=== PATIENT | male | born 1985 | race Caucasian/White ===

== ENCOUNTER 2019-10-02 07:38 | Outpatient (CLI) | payer OTHER, SELFPAY ==
[2019-10-02 08:41] LABS: Alanine Aminotransferase 38 U/L (4-50); Albumin Level 4.5 g/dL (3.5-5.1); Alkaline Phosphatase 72 U/L (38-126); Aspartate Amino Transferase 25 U/L (17-59); Bilirubin,Total 0.3 mg/dL (0.2-1.3); Blood Urea Nitrogen 22 mg/dL (9-20); Calcium 9.5 mg/dL (8.4-10.2); Carbon Dioxide 25 mmol/L (22-30); Chloride 101 mmol/L (98-107); Estimated Glomerular Filt Rate > 60; Glucose 100 mg/dL (75-110); Potassium 4.3 mmol/L (3.4-5.0); Sodium 137 mmol/L (137-145)
[2019-10-02 08:42] LABS: Add Urine Microscopic? YES; Appearance Urine Clear (Clear); Bacteria Urine Trace /hpf; Bilirubin Urine Negative (Negative); Blood Urine 1+ (Negative); Color Urine Straw (Yellow); Glucose Urine UA Negative (Negative); Ketones Urine Negative (Negative); Leukocyte Esterase Ur Negative LEU/UL (NEGATIVE); Mucus Urine Rare /lpf; Nitrate Urine Negative (Negative); Protein Urine Negative (Negative); RBC Urine 0-2 /hpf (0-2); Specific Grav Ur 1.014 (1.001-1.035); Urobilinogen Urine Negative mg/dL (<2.0); WBC Urine 0-3 /hpf (0-3)
[2019-10-02 09:09] LABS: Prostate Specific Antigen 0.6 ng/mL (< OR = 4.0)
== END 2019-10-02 07:39 | disposition home or self-care (01) ==
PROVIDERS: PCP Family Medicine; Visit Provider Physician Assistant
DX: R35.1 Nocturia (principal)
CPT/HCPCS: 36415; 80053; 81001; 84153

== ENCOUNTER 2022-05-03 20:39 | Emergency (ER) | payer BC, SELFPAY ==
--- NOTE | ~2022-05-03 | XR_ITS ---
EXAMINATION: XR hand LT min 3V INDICATION: Left hand pain and laceration TECHNIQUE: Three views of the left hand are obtained. COMPARISON: 07/18/2008 FINDINGS: Bone alignment is normal. No fracture is identified. There appears to be soft tissue swelli ng at the palmar aspect of the hand overlying the distal metacarpals. No radiopaque foreign body is i dentified. The joint spaces are normal. IMPRESSION: 1. Soft tissue swelling without acute osseous abnormality. Reviewed, dictated and finalized at location F.
[2022-05-03 21:00] VITALS: BP 125/85; PULSE 75; RESP 20; TEMP 36.9; O2SAT 98
--- NOTE | 2022-05-03 22:32 | ED.WOUNDLAC ---
HPI - Wound/Laceration General Chief Complaint: Wound/Laceration <Verito Campbell PA-C - Last Filed: 05/03/22 23:21> Stated Complaint: laceration left hand <Verito Campbell PA-C - Last Filed: 05/03/22 23:21> Time Seen by Provider: 05/03/22 21:40 <Verito Campbell PA-C - Last Filed: 05/03/22 23:21> Source: patient <Verito Campbell PA-C - Last Filed: 05/03/22 23:21> Mode of arrival: ambulatory <Verito Campbell PA-C - Last Filed: 05/03/22 23:21> Limitations: no limitations <Verito Campbell PA-C - Last Filed: 05/03/22 23:21> History of Present Illness HPI narrative: This is a 37-year-old male that presents to the emergency department for a laceration to the left hand sustained just prior to arrival. Reports he was fixing a pedal machine and had the lid open. It started to shut and he tried to catch it with his hand. Sustained a laceration to the palmar surface. Denies decreased range of motion or numbness. Reports he is up-to-date on tetanus. <Verito Campbell PA-C - Last Filed: 05/03/22 23:21> Related Data Allergies/Adverse Reactions: Allergies Allergy/AdvReac Type Severity Reaction Status Date / Time No Known Allergies Allergy Verified 05/03/22 21:03 <Verito Campbell PA-C - Last Filed: 05/03/22 23:21> Review of Systems Review of Systems: CONSTITUTIONAL: Denies fever SKIN: Reports laceration NEUROLOGIC: Denies numbness <Verito Campbell PA-C - Last Filed: 05/03/22 23:21> All systems reviewed & are unremarkable except as noted in HPI and below <Verito Campbell PA-C - Last Filed: 05/03/22 23:21> [facility] Past Medical History Medical History: Medical History (Updated 05/03/22 @ 23:20 by Verito Campbell PA-C) No active medical problems <KAROLINA Gooden Last Filed: 05/03/22 23:21> Family History Family History: Family History (Updated 03/25/16 @ 23:19 by DOCTOR UNKNOWN) Father Family history of diabetes mellitus in first degree relative <Verito Campbell PA-C - Last Filed: 05/03/22 23:21> Social History Social History: Social History Smoking status: Never smoker Alcohol intake: current <Verito Campbell PA-C - Last Filed: 05/03/22 23:21> Exam Narrative: GENERAL: Well-appearing, well-nourished, and in no acute distress. HEAD: Normocephalic, atraumatic. EYES: EOMI. EXTREMITIES: Normal range of motion. No edema. Left hand palmar surface with 2cm linear laceration into subcutaneous tissue SKIN: Warm, dry, no rash. NEURO: No focal deficits. Alert and oriented x3. PSYCH: Normal mood and affect <Verito Campbell PA-C - Last Filed: 05/03/22 23:21> Course [facility] C[facility] NURSE PRACTITIONER/PA Physician Supervision I discussed this patient with SHARAD Campbell. I agree with the assessment and plan as documented. <Ry Luis MD - Last Filed: 05/04/22 06:21> Vital Signs Vital signs: Vital Signs Temperature 98.5 F 05/03/22 21:00 Pulse Rate 75 05/03/22 21:00 Respiratory Rate 20 05/03/22 21:00 Blood Pressure 125/85 05/03/22 21:00 Pulse Oximetry 98 05/03/22 21:00 Oxygen Delivery Room Air 05/03/22 21:00 Temperature 98.5 F 05/03/22 21:00 Pulse Rate 75 05/03/22 21:00 Respiratory Rate 20 05/03/22 21:00 Blood Pressure 125/85 05/03/22 21:00 Pulse Oximetry 98 05/03/22 21:00 Oxygen Delivery Room Air 05/03/22 21:00 <Verito Campbell PA-C - Last Filed: 05/03/22 23:21> Vital Signs Temperature 98.5 F 05/03/22 21:00 Pulse Rate 75 05/03/22 21:00 Respiratory Rate 20 05/03/22 21:00 Blood Pressure 125/85 05/03/22 21:00 Pulse Oximetry 98 05/03/22 21:00 Oxygen Delivery Room Air 05/03/22 21:00 Temperature 98.5 F 05/03/22 21:00 Pulse Rate 75 05/03/22 21:00 Respiratory Rate 20 05/03/22 21:00 Blood Pressure 125/85 05/03/22 21:00 Pulse Oximetry 98 05/03/22 21:00 Oxygen Delivery Room Air 05/03/22 21:00 <Ry Luis MD - Last Filed: 05/04/22 06:21>
== END 2022-05-03 23:37 | disposition home or self-care (01) ==
PROVIDERS: Emergency Provider Preventive Medicine Aerospace Medicine; PCP Family Medicine
DX: S61.412A Laceration without foreign body of left hand, initial encounter (principal); W26.8XXA Contact with other sharp object(s), not elsewhere classified, initial encounter
CPT/HCPCS: 12001; 73130; 99283

== ENCOUNTER 2023-01-26 16:10 | Emergency (ER) | payer SELFPAY ==
--- NOTE | ~2023-01-26 | XR_ITS ---
EXAMINATION: XR chest 2V DATE: 01/26/2023 17:13 INDICATION: Cough and wheezing. TECHNIQUE: Frontal and lateral views of the chest were obtained. COMPARISON: Chest 2 views 05/03/2016 FINDINGS: The chest demonstrates clear lungs without pneumonia, pleural effusion, or pneumothorax. Th e heart size is normal. IMPRESSION: 1. No acute cardiopulmonary disease. Reviewed, dictated and finalized at location A.
[2023-01-26 16:30] VITALS: BP 145/95; PULSE 125; RESP 16; TEMP 37.1; O2SAT 99
--- NOTE | 2023-01-26 16:38 | ED.URI ---
HPI - URI/Sore Throat General Chief Complaint: Upper Respiratory Infection Stated Complaint: sore throat Time Seen by Provider: 01/26/23 16:38 Source: patient and RN notes reviewed Mode of arrival: ambulatory Limitations: no limitations History of Present Illness HPI Narrative: Patient presents today complaining of 4 day history of sore throat, cough, congestion, rhinorrhea, shortness of breath. He currently rates his sore throat 9/10 and has tried no medication for symptoms prior to arrival. Reports he did have a fever for 3 days prior to onset of additional symptoms, but this has resolved. Denies history of asthma or COPD. He is a nonsmoker. Related Data Allergies Allergy/AdvReac Type Severity Reaction Status Date / Time No Known Allergies Allergy Verified 05/03/22 21:03 Review of Systems Review of Systems: CONSTITUTIONAL: Denies body aches, fever, chills, or sweats. EYES: Denies visual changes, redness, or discharge. ENT: Denies otalgia.+ rhinorrhea, congestion, sore throat CARDIOVASCULAR: Denies chest pain, palpitations, or edema. RESPIRATORY: + cough, shortness of breath GASTROINTESTINAL: Denies abdominal pain, nausea, vomiting, or diarrhea. GENITOURINARY: Denies dysuria or hematuria. SKIN: Denies rash, itching, or wounds. MUSCULOSKELETAL: Denies back pain, joint pain, or myalgia. NEUROLOGIC: Denies headache, numbness, tingling, or weakness. PSYCH: Denies depression or anxiety. PMFSH Past Medical History Medical History No active medical problems Family History Family History Father Family history of diabetes mellitus in first degree relative Social History Social History Smoking status: Never smoker Alcohol intake: current Comments At time of signature, I have reviewed and agree with nursing past medical, surgical, social and family history unless otherwise noted. Please see nursing chart for further information. There is no relevant family history pertinent to the presenting complaint Exam Narrative: GENERAL: Well-appearing, well-nourished, and in no acute distress. HEAD: Normocephalic, atraumatic. EYES: EOMI. No redness or drainage. Conjunctivae normal. ENT: Mucous membranes pink and moist. Nares congested. No rhinorrhea. TMs normal bilaterally. Throat erythematous and mildly edematous without exudate. Uvula midline. NECK: Normal AROM. Supple. No lymphadenopathy. CHEST: No respiratory distress. Expiratory wheezes throughout. HEART: Regular rate and rhythm. No murmur appreciated. Normal peripheral pulses. EXTREMITIES: Normal range of motion. No edema. SKIN: Warm, dry, no rash. Capillary refill normal. Normal skin turgor. NEURO: No focal deficits. Alert and oriented x3. Gait steady. PSYCH: Normal affect. No signs of depression or anxiety. Course Course Level of Care: Express Care Visit Vital Signs Vital signs: BP 145/95, HR 125, RR 16, Temp 98.8 MDM - URI/Sore Throat MDM Narrative Medical decision making narrative: Rapid strep positive. Chest x-ray negative. Will treat patient with amoxicillin and prednisone. Anticipatory guidance given. Differential Diagnosis Differential diagnosis: Likely upper respiratory infection, viral infection, bronchitis, pharyngitis and other (pneumonia) Lab Data Attestation: I reviewed the patient's lab results. Lab results narrative: Rapid strep positive Imaging Data Radiologist's impression: ITS Impressions Chest X-Ray 01/26/23 17:15 IMPRESSION: 1. No acute cardiopulmonary disease. Critical Care Time Critical Care Time Critical Care Time: No Discharge Plan Discharge Clinical Impression: Strep throat, Bronchitis Patient Disposition: Home, Self-Care Condition: Stable Instructions: Strep Throat (DC), Acute Bronchitis (
== END 2023-01-26 17:38 | disposition home or self-care (01) ==
PROVIDERS: Emergency Provider Nurse Practitioner; PCP Family Medicine
DX: J02.0 Streptococcal pharyngitis (principal); J40 Bronchitis, not specified as acute or chronic
CPT/HCPCS: 71046; 87880; 99213; G0463

== ENCOUNTER 2024-12-09 08:59 | Emergency (ER) | payer OTHER, SELFPAY ==
--- NOTE | ~2024-12-09 | XR_ITS ---
HISTORY: cough, left, lat, low rib pain COMPARISON: Reference is made to a two-view evaluation of the chest dated 01/26/2023 TECHNIQUE: 3 views of the left ribs were performed along with a PA view of the chest FINDINGS: No acute displaced fracture is appreciated. Bone mineralization is age-appropriate. The cardiomediastinal silhouette is unremarkable. The lungs are clear. IMPRESSION: No acute displaced rib fracture. The lungs are clear. Reviewed, dictated and finalized at location A.
[2024-12-09 09:14] VITALS: BP 134/98; PULSE 93; RESP 20; TEMP 36.6; O2SAT 99
--- NOTE | 2024-12-09 10:11 | ED.BACK ---
HPI - Back Pain/Injury General Chief Complaint: Back Pain/Injury Stated Complaint: Think he has Hernia Time Seen by Provider: 12/09/24 10:08 Source: patient Mode of arrival: ambulatory Limitations: no limitations History of Present Illness HPI Narrative: 39 y/o male Presented for complaint of left side pain, onset yesterday. He endorses a cough for about 10 days and says during the cough yesterday he heard a pop and felt a sharp stabbing pain which took him to the floor. Since then the pain is constant and worse with coughing, straining etc.. He denies shortness of breath, wheezing, nausea, vomiting, diarrhea, constipation, urinary changes, fevers or chills. Has not taken anything for pain. Related Data Allergies Allergy/AdvReac Type Severity Reaction Status Date / Time No Known Allergies Allergy Verified 12/09/24 09:06 Review of Systems Review of Systems: CONSTITUTIONAL: Denies body aches, fever, chills, or sweats. ENT: Denies rhinorrhea, congestion, sore throat, or otalgia. CARDIOVASCULAR: Denies chest pain, palpitations, or edema. RESPIRATORY: Reports cough, denies sob, wheezing. GASTROINTESTINAL: Denies abdominal pain, nausea, vomiting, or diarrhea. GENITOURINARY: Denies dysuria or hematuria. SKIN: Denies rash MUSCULOSKELETAL: reports left low rib pain Denies back pain, joint pain, or myalgia. NEUROLOGIC: Denies headache All systems reviewed & are unremarkable except as noted in HPI and below PMFSH Past Medical History Medical History No active medical problems Family History Family History Father Family history of diabetes mellitus in first degree relative Social History Social History Smoking status: Never smoker Alcohol intake: current Comments At time of signature, I have reviewed and agree with nursing past medical, surgical, social and family history unless otherwise noted. Please see nursing chart for further information. There is no relevant family history pertinent to the presenting complaint Exam Narrative: GENERAL: Well-appearing, in no acute distress. EYES: EOMI. No redness or drainage. Conjunctivae normal. ENT: Mucous membranes pink and moist. No rhinorrhea. CHEST: No respiratory distress. Coarse with inspiration to all barrios. No wheezing. No cough. HEART: Regular rate and rhythm. No murmur appreciated. ABDOMEN: Soft, nontender, nondistended, normal active bowel sounds. MUSC: Left lower lateral ribs mildly tender with palpation, no bruising or deformity. No VPT. Normal range of motion to extremities. No edema. SKIN: Warm, dry, no rash. Capillary refill normal. Normal skin turgor. NEURO: Alert and oriented x3. Gait steady. PSYCH: Normal affect. Course Course Emergency Course: Patient is aware of diagnosis, understands and agrees to treatment plan. Anticipatory guidance given. Patient agrees to follow-up as directed and is aware of reasons to seek care at the emergency department. Portions of this record may have been created with voice recognition software Level of Care: Express Care Visit Vital Signs Vital signs: Vital Signs Temperature 97.9 F 12/09/24 09:14 Pulse Rate 93 12/09/24 09:14 Respiratory Rate 20 12/09/24 09:14 Blood Pressure 134/98 H 12/09/24 09:14 Pulse Oximetry 99 12/09/24 09:14 Oxygen Delivery Room Air 12/09/24 09:14 Temperature 97.9 F 12/09/24 09:14 Pulse Rate 93 12/09/24 09:14 Respiratory Rate 20 12/09/24 09:14 Blood Pressure 134/98 H 12/09/24 09:14 Pulse Oximetry 99 12/09/24 09:14 Oxygen Delivery Room Air 12/09/24 09:14 MDM - Back Pain/Injury MDM Narrative Medical decision making narrative: Discussed physical exam findings and xray. Reviewed Rx to treat bronchitis. Advised supportive measures and signs/symptoms to go to the ER. Pt is appropriate for outpt treatment and f/u. Differential Diagnosis Differential diagnosis: Likely lumbar radiculopathy, thoracic back pain, discitis and other (rib fracture, rib contusion, musculoskeletal strain, pneumonia, bronchitis) Imaging Data Radiologist's impression: Patient: Rosales Quintanilla : 1985 MR#: [id number] Age: 39 Acct:[id number] Loc: [id number] ADM Date: 12/09/24Attending Dr: Ordering Physician: Rebecca Modi APRN Date of Service: 12/09/24 Procedure(s): XR ribs LT w PA CXR Accession Number(s): [id number] cc: Oscar Munoz MD; Rebecca Modi APRN~ HISTORY: cough, left, lat, low rib pain COMPARISON: Reference is made to a two-view evaluation of the chest dated 01/26/2023 TECHNIQUE: 3 views of the left ribs were performed along with a PA view of the chest FINDINGS: No acute displaced fracture is appreciated. Bone mineralization is age-appropriate. The cardiomediastinal silhouette is unremarkable. The lungs are clear. IMPRESSION: No acute displaced rib fracture. The lungs are clear. Discharge Plan Discharge Clinical Impression: Bronchitis Patient Disposition: Home Condition: Stable Instructions: Antibiotic Form, Acute Bronchitis (ED) Additional Instructions: Your blood pressure reading was elevated (above 120/80) please follow-up with your primary care provider for further evaluation and management. If you develop worsening Blood Pressure symptoms, (headache, vision changes, dizziness, vomiting, chest pain, etc) go to the ER. Call 911. Acute bronchitis can be contagious because it is usually caused by infection with a virus or bacteria. It is usually for a few days but you can be contagious for up to one week. Avoid crowds until you do not have a fever and symptoms are improved Take medication as directed over the counter Cough syrup may cause drowsiness; avoid driving or take it at night time. Tylenol every 8 hours as needed for pain Symptomatic treatment includes: rest, fluids, and increase humidity of the air at home. Follow up with your primary care provider as needed in 1 week Go to the ER for worsening symptoms or concerns Patient Language: Bengali Prescriptions: New azithromycin [Zithromax Z-Jeremy] 250 mg tablet See Rx Instructions .ROUTE .COMPLEX Qty: 6 0RF Rx Instructions: For 250 mg dose pack: take 500 mg today (day 1), then 250 mg for 4 days (days 2-5) benzonatate 200 mg capsule 200 mg PO TID PRN (Reason: cough) Qty: 20 0RF prednisone 50 mg tablet 50 mg PO DAILY Qty: 5 0RF Follow-up/Referrals: Oscar Munoz MD [Primary Care Provider] - Stand Alone Forms: Work/School Release IP Time of Disposition: 11:08
== END 2024-12-09 11:32 | disposition home or self-care (01) ==
PROVIDERS: Emergency Provider Nurse Practitioner Family; PCP Family Medicine
DX: J40 Bronchitis, not specified as acute or chronic (principal)
CPT/HCPCS: 71101; 99213; G0463